=== PATIENT | male | born 1995 | race Caucasian/White ===

== ENCOUNTER 2022-06-15 06:55 | Day surgery (SDC) | payer BC, SELFPAY ==
[2022-06-08 11:32] VITALS: BMI 29.0
--- NOTE | 2022-06-08 11:36 | PC.NURSE ---
Report to the Outpatient Waiting Room, entrance under the green pavilion located off [facility], at time 0730 on date 06/15/22. Planned Procedure Time: 0930. Time changes happen often and if your time is changed the preop area will call you the afternoon before. - You and your visitor will be asked to self-screen and do not enter if you have any COVID symptoms. - A mask is optional within the hospital at this time. Patients may have clear liquids (water, carbonated beverages, clear teas, apple juice) until 3 hours prior to surgery with a maximum of 20 ounces. - No food from midnight until time of surgery Take the following medications with a SIP of water the morning of surgery: N/A DO NOT STOP ANY OF YOUR OTHER PRESCRIPTION MEDICATIONS PRIOR TO SURGERY EXCEPT THE FOLLOWING Medications to discontinue per physician: N/A Date to take last dose: N/A Please no make-up, nail liberian, hairspray, perfume, deodorant, or body powder the day of surgery. No jewelry (including any body piercings) or valuables the day of surgery, leave them at home. Please take a shower or bath the night before, or the morning of, surgery with an antibacterial soap. Wear comfortable, loose fitting clothing. - Jewelry must be removed prior to entering the operating room. Rings and piercings that are not removed may be cut off. - The hospital will not accept responsibility for valuables. - Please leave all valuables, including medications, at home the day of surgery. If you are going home after surgery, a licensed pizza driver must drive you home. - NO public transportation without another adult if you receive anesthesia. - We recommend that an adult stay with you for 24 hours following discharge. - We also recommend that you do not drive, make important decision, drink alcoholic beverages, or take any drugs that were not prescribed by your health care provider for at least 24 hours after your discharge time. Follow any additional instructions given to you from your surgeon. If you or anyone in your household have experienced Covid symptoms in the past week, please notify your surgeon or the nurse liaison at the phone number below for possible testing. Telephone instructions given to PT Anabela WEST and asked if any additional questions and then verbalized understanding. Patient advised to call surgeon office or pre surgery nurse liaison [phone] if any additional questions.
--- NOTE | 2022-06-15 07:09 | WPDHPUPDATE1 ---
History and Physical Update Update Date/Time: 06/15/22 07:09 History and Physical has been reviewed, including an updated exam of the patient. There are NO changes in the patient's condition. Risks, benefits, and alternatives have been discussed and questions answered. Patient agrees to proceed with procedure.
--- NOTE | 2022-06-15 07:10 | WPDHPUPDATE1 ---
History and Physical Update Update Date/Time: 06/15/22 07:10 History and Physical has been reviewed, including an updated exam of the patient. There are NO changes in the patient's condition. Risks, benefits, and alternatives have been discussed and questions answered. Patient agrees to proceed with procedure.
[2022-06-15] MEDS: LACTATED RINGERS 1,000 ML 30 ML IV CONT (08:13)
[2022-06-15 08:14] VITALS: BP 134/60; PULSE 57; RESP 16; TEMP 36.3; O2SAT 100
--- NOTE | 2022-06-15 08:23 | P.PNAN_ITS ---
Anes - Initial Pre Proc Eval Procedure: Operation Date: 06/15/22 09:30 Proposed Procedures p Excision of Subcutaneous Mass Left Volar Wrist - Cyrus Larsen MD Date/Time: 06/15/22 08:23 Surgeon: Cyrus Larsen MD Pre Op Diagnosis: Lt Volar Wrist Subcutaneous Mass Patient Data Age: 27 Gender: M Height: 1.78 m Weight: 94.8 kg Last Vital Signs Temp 36.3 C L 06/15/22 08:14 Pulse 57 L 06/15/22 08:14 Resp 16 06/15/22 08:14 BP 134/60 06/15/22 08:14 Pulse Ox 100 06/15/22 08:14 O2 Del Method Room Air 06/15/22 08:14 Allergies Allergy/AdvReac Type Severity Reaction Status Date / Time No Known Allergies Allergy Verified 06/15/22 07:20 Home Medications Medication Instructions Recorded Confirmed Type No Home Medications 03/22/22 06/08/22 History Patient hx anesthesia problems: none Family hx anesthesia problems: none Results Review: All pre-operative results and documents have been reviewed as part of the pre- operative evaluation. [facility] Past Medical History Medical History Establishing care with new doctor, encounter for Ganglion cyst Family History Family History Grandparent Hypertension Family history of lung cancer Diabetes mellitus Father Asthma Social History Social History Years smoked: 5 Smoking status: Former smoker Tobacco type: cigarettes Smoking end date: 02/06/17 Alcohol intake: current Alcohol use details: VERY RARE Substance use: never Substance use type: does not use Living arrangements: with friend(s) Additional living arrangements comments: GIRLFRIEND Occupation/Education: occupation Spiritual care concerns: No Anes - Eval Final PreProcedure Day of Procedure 06/15/22 08:23 Patient weight: overweight Heart: regular rate and rhythm Lungs: clear to auscultation Airway: Mallampati scale class II Neurological: alert and oriented Last oral intake: >/= 8 hours ASA classification: II Emergent: no Anesthetic plan: proceed Anesthesia type and monitoring: general GIVS and standard monitoring Results Review: All pre-operative results and documents have been reviewed as part of the pre- operative evaluation. Informed Consent: The patient's anesthetic plan and its attendant risks and benefits were discussed with the patient/family/POA. Questions were solicited and answers provided to the satisfaction of the patient/family/POA.
[2022-06-15] MEDS: LIDO 1%/EPINEPHRINE 1:100,000 20 ML VIAL 4 ML INFILTRATE (09:04)
[2022-06-15 09:48] VITALS: BP 93/37; PULSE 71; RESP 12; O2SAT 95
--- NOTE | 2022-06-15 10:02 | P.OP_ITS ---
Procedure Note - Detailed Date of Procedure 06/15/22 Pre-op Diagnosis Lt Volar Wrist Subcutaneous Mass Post-op Diagnosis Same Procedure Performed Excision of left volar wrist ganglion cyst Surgeon Cyrus Larsen MD [employer] [facility] Anesthesia [facility] Description of Procedure The tender fluctuant site on the left volar wrist was marked in the preop area. The patient consented to that. He was taken to the operating room. He was placed supine on the operating table. The patient was given IV sedation and the left upper extremity was prepped and draped in the usual fashion. The time-out was held and confirmed. Site was marked for the incision and this area locally infiltrated with 1% lidocaine with epinephrine. The extremity was exsanguinated and the tourniquet inflated 250 mmHg. A longitudinal incision was made over the palpable mass. Blunt dissection revealed several veins, the radial artery and the lobulated ganglion cyst that was adherent to a 1 mm vein. This cyst was carefully dissected free from the radial artery and other larger veins. The tightly adherent vein associated with the cyst was divided at both ends with cautery. The cyst was removed. Other suspected sites of bleeding were cauterized at a setting of 20. The tourniquet was released. There was some venous bleeding that responded to direct pressure for about 5 minutes. The wound was closed with intradermal 4-0 Monocryl suture. The usual bandage was applied and patient was discharged from the operating room stable condition has prescription for hydrocodone 5/325 4. Estimated Blood Loss -1.0 Tourniquet Time 25 Drains No Packing No Pathology None sent Complications No immediate complications Condition Stable Disposition Same day
[2022-06-15 10:18] VITALS: BP 98/45; PULSE 55; RESP 14; O2SAT 97
[2022-06-15 10:48] VITALS: BP 111/70; PULSE 62; RESP 16
== END 2022-06-15 11:13 | disposition home or self-care (01) ==
PROVIDERS: PCP Family Medicine; Visit Provider Plastic Surgery
PROC: (CPT 25111; principal; 2022-06-15 09:30)
DX: M67.432 Ganglion, left wrist (principal); Z87.891 Personal history of nicotine dependence
CPT/HCPCS: 25111; A9270; J2250; J2405; J2704; J7120